=== PATIENT | male | born 1970 | race African-American/Black ===

== ENCOUNTER 2024-07-24 21:58 | Emergency (ER) | payer OTHER ==
[~2024-07-24] VITALS: Ht 167.6 cm; Wt 77.0 kg
[2024-07-24 22:03] VITALS: BP 139/95; PULSE 110; RESP 20; TEMP 98.5; O2SAT 98
[2024-07-24] MEDS ORDERED: PSEUDOEPHEDRINE HCL 30MG TABLET PO STA (22:48)
[2024-07-24] MEDS ORDERED: PSEU120T56 MT (22:50)
[2024-07-24] MEDS ORDERED: IBUPROFEN 600MG TABLET PO ONE (23:00)
== END 2024-07-25 01:08 | disposition home or self-care (01) ==
LOC: ER 22:27
DX: J06.9 Acute upper respiratory infection, unspecified (principal); B97.89 Other viral agents as the cause of diseases classified elsewhere; E11.9 Type 2 diabetes mellitus without complications
CPT/HCPCS: 71045; 99283